=== PATIENT | male | born 1965 | race Caucasian/White ===

== ENCOUNTER 2024-01-07 17:56 | Inpatient (IN) | payer OTHER ==
[~2024-01-07] VITALS: Ht 182.9 cm; Wt 81.7 kg
[2024-01-07] MEDS ORDERED: Ondansetron HCl 2 MG / ML 2ML Vial IV ONE (18:25)
[2024-01-07] MEDS ORDERED: HYDROmorphone HCl/Pf 1MG SYR IV ONE ×2 (18:25→20:10)
[2024-01-07] MEDS ORDERED: NS 1,000 ML IV SCH (18:30)
[2024-01-07 18:35] LABS: BASOPHILS ABSOLUTE AUTO 0.08 K/mm3 (0.00-0.23); BASOPHILS PERCENT AUTO 1 % (0-2); EOSINOPHILS ABSOLUTE AUTO 0.01 K/mm3 (0.00-0.68); EOSINOPHILS PERCENT AUTO 0 % (0-6); Hematocrit 42.4 % (37.0-53.0); Hemoglobin 14.5 g/dL (13.5-17.5); IMMATURE GRAN ABSOLUTE AUTO 0.04 K/mm3 (0.00-0.10); IMMATURE GRAN PERCENT AUTO 0 % (0-1); LYMPHOCYTES ABSOLUTE AUTO 2.11 K/mm3 (0.84-5.20); LYMPHOCYTES PERCENT AUTO 17 % (21-46); MONOCYTES ABSOLUTE AUTO 0.56 K/mm3 (0.16-1.47); MONOCYTES PERCENT AUTO 4 % (4-13); Mean Corpuscular HGB 29.7 pg (26.0-34.0); Mean Corpuscular HGB Conc 34.2 g/dL (31.5-36.5); Mean Corpuscular Volume 87 fL (80-100); Mean Platelet Volume 9.5 fL (9.1-12.4); NEUTROPHILS ABSOLUTE AUTO 9.84 K/mm3 (1.96-9.15); NEUTROPHILS PERCENT AUTO 78 % (41-73); Platelet Count 342 K/mm3 (150-400); RDW Coefficient Variation 13.3 % (11.7-14.2); RDW Standard Deviation 42.1 fL (35.1-46.3); Red Blood Cell Count 4.88 M/mm3 (4.30-5.90); White Blood Cell Count 12.64 K/mm3 (4.00-11.30)
[2024-01-07 18:56] LABS: Albumin, Blood 4.1 g/dL (3.4-5.0); Albumin/Globulin Ratio 1.1 (0.8-1.8); Bilirubin, Total 0.4 mg/dL (0.1-1.0); Bun/Creatinine Ratio 14.4 (12.0-20.0); Calcium, Blood 9.3 mg/dL (8.5-10.1); Creatinine, Blood 0.84 mg/dL (0.60-1.20); Globulin, Blood 3.8 g/dL (2.2-4.0); Potassium, Blood 3.2 mmol/L (3.5-5.5); Total Protein, Blood 7.9 g/dL (6.4-8.2)
[2024-01-07 20:04] LABS: Source, Urine Clean Catch
[2024-01-07 20:07] LABS: Appearance, Urine Clear (Clear); Bilirubin, Urine Neg (Neg); Blood, Urine Neg (Neg); Glucose Qualitative, Urine Neg (Neg); Ketones, Urine 3+ (Neg); Leukocyte Esterase, Urine Neg (Neg); Nitrite, Urine Neg (Neg); Protein, Urine Neg (Neg); Urobilinogen, Urine NORM (Normal)
[2024-01-07] MEDS ORDERED: Prochlorperazine Edisylate 10 mg Vial IV ONE (20:10)
[2024-01-07 20:13] LABS: Color, Urine Pale Yellow (P-Yellow)
[2024-01-07] MEDS ORDERED: HYDROmorphone HCl/Pf 1MG SYR IV PRN ×2 (20:45→22:15)
[2024-01-07] MEDS ORDERED: Lactated Ringer's 1,000 ML IV SCH ×2 (20:45→22:15)
[2024-01-07] MEDS ORDERED: Piperacillin/Tazobactam Sod 3.375 GM in NS 100 ML IV ONE (20:45)
[2024-01-07] MEDS ORDERED: Ondansetron HCl 2 MG / ML 2ML Vial IV PRN ×2 (20:45→22:15)
[2024-01-07] MEDS ORDERED: FLU VACC TS2024-25(6MOS UP)/PF 45 MCG/0.5 ML SYRINGE IM ONE (22:15)
[2024-01-07] MEDS ORDERED: OxyCODONE 5 mg/Acetamin 325 mg TABLET PO PRN (22:20)
[2024-01-07] MEDS ORDERED: Ketorolac Tromethamine 15mg Vial IV PRN (22:45)
[2024-01-07 23:03] VITALS: BP 145/94
[2024-01-08] VITALS (11 sets, daily range): BP systolic 104–139; BP diastolic 69–90
[2024-01-08 05:19] LABS: BASOPHILS ABSOLUTE AUTO 0.07 K/mm3 (0.00-0.23); BASOPHILS PERCENT AUTO 1 % (0-2); EOSINOPHILS ABSOLUTE AUTO 0.08 K/mm3 (0.00-0.68); EOSINOPHILS PERCENT AUTO 1 % (0-6); Hematocrit 40.3 % (37.0-53.0); Hemoglobin 13.4 g/dL (13.5-17.5); IMMATURE GRAN ABSOLUTE AUTO 0.06 K/mm3 (0.00-0.10); IMMATURE GRAN PERCENT AUTO 0 % (0-1); LYMPHOCYTES ABSOLUTE AUTO 2.22 K/mm3 (0.84-5.20); LYMPHOCYTES PERCENT AUTO 16 % (21-46); MONOCYTES ABSOLUTE AUTO 1.26 K/mm3 (0.16-1.47); MONOCYTES PERCENT AUTO 9 % (4-13); Mean Corpuscular HGB 29.6 pg (26.0-34.0); Mean Corpuscular HGB Conc 33.3 g/dL (31.5-36.5); Mean Corpuscular Volume 89 fL (80-100); Mean Platelet Volume 9.2 fL (9.1-12.4); NEUTROPHILS ABSOLUTE AUTO 9.86 K/mm3 (1.96-9.15); NEUTROPHILS PERCENT AUTO 73 % (41-73); Platelet Count 295 K/mm3 (150-400); RDW Coefficient Variation 13.5 % (11.7-14.2); RDW Standard Deviation 44.2 fL (35.1-46.3); Red Blood Cell Count 4.52 M/mm3 (4.30-5.90); White Blood Cell Count 13.55 K/mm3 (4.00-11.30)
[2024-01-08 05:51] LABS: Albumin, Blood 3.3 g/dL (3.4-5.0); Bilirubin, Total 2.7 mg/dL (0.1-1.0); Bun/Creatinine Ratio 10.8 (12.0-20.0); Calcium, Blood 8.6 mg/dL (8.5-10.1); Creatinine, Blood 1.02 mg/dL (0.60-1.20); Globulin, Blood 3.2 g/dL (2.2-4.0); Potassium, Blood 4.3 mmol/L (3.5-5.5); Total Protein, Blood 6.5 g/dL (6.4-8.2)
--- NOTE | 2024-01-08 06:43 | NUR ---
SHIFT SUMMARY PT IS ALERT AND ORIENTED TIMES 3. PT IS DNR. FALL RISK. HX OF CLOSED HIP FRACTURE, DEMENTIA, GERD, AND DEPRESSION. NO IV ACCESS. 1 PERSON ASSIST TO BSC. POSSIBLE DISCHARGE TO [facility] TUESDAY OR TUESDAY. BED IN LOW POSITION, RAILS TIMES 2, CALL LIGHT WITHIN REACH.
[2024-01-08] MEDS ORDERED: Docusate Sodium 100 MG Cap PO SCH (09:00)
[2024-01-08] MEDS ORDERED: Indocyanine Green 25 MG Vial IV ONE (12:15)
[2024-01-08] MEDS ORDERED: Bupivacaine 0.5% HCl 5 MG/ML 30MLVIAL ONE (12:58)
--- NOTE | 2024-01-08 12:59 | NUR ---
DR STOCKTON IN ROOM, PROCEDURE EXPLAINED. PT TAKEN TO SURGERY. AT BEDSIDE.
[2024-01-08] MEDS ORDERED: HYDROmorphone HCl/Pf 1MG SYR IV PRN (13:10)
[2024-01-08] MEDS ORDERED: Albuterol 2.5 MG/3 ML VIAL INH PRN (13:10)
[2024-01-08] MEDS ORDERED: CeFAZolin Sodium 2,000 MG in NS 100 ML IV SCH (13:15)
[2024-01-08] MEDS ORDERED: Rocuronium Bromide 10 MG/ML 5ML Injection IV ONE ×2 (13:15→15:36)
[2024-01-08] MEDS ORDERED: FentaNYL Citrate 50 MCG/ML 2 ML Injection IV PRN (13:15)
[2024-01-08] MEDS ORDERED: Droperidol 5 mg/2 ml Vial IV PRN (13:15)
[2024-01-08] MEDS ORDERED: FentaNYL Citrate 50 MCG/ML 5 ML Injection ONE (13:15)
[2024-01-08] MEDS ORDERED: propofoL 20 ML IV ONE (13:15)
[2024-01-08] MEDS ORDERED: Ketorolac Tromethamine 30mg Vial ONE (13:22)
[2024-01-08] MEDS ORDERED: Ondansetron HCl 2 MG / ML 2ML Vial ONE (13:22)
[2024-01-08] MEDS ORDERED: Dexamethasone Sod Phos 10 MG/ML 1ML VIAL ONE (13:22)
--- NOTE | 2024-01-08 13:22 | NUR ---
1315-PT BROUGHT DOWN FROM MEDICAL FLOOR TO BE MADE READY FOR SURGERY. PT IDENTIFIED AND CONSENT VERIFIED. ALL BELONGINGS LEFT IN ROOM. NO METAL/PROSTHESIS. PT NPO. VSS ON RA. PT IN PAIN INTERMITTENTLY. IV FLUSHED WITH 10CC NACL. CONNECTED TO 1L LR TKO. ABX PULLED, 2.5MG OF INDOCYANINE GIVEN IN PRE-OP. PAS ON AND WARM BLANKLETS PROVIDED. REPORT GIVEN TO FRONT ATTENDANT. AND BOTH SURGEON AND ACP INTO SEE PT.
[2024-01-08] MEDS ORDERED: NS 500 ML IV SCH (14:10)
[2024-01-08] MEDS ORDERED: Glucagon 1 MG/KIT VIAL ONE (15:04)
[2024-01-08] MEDS ORDERED: Phenylephrine HCl 100 MCG/ML-NS 10MLSYR (1MG/10ML) ONE (15:55)
[2024-01-08] MEDS ORDERED: Sugammadex Sodium 200 MG/2ML SDV (100 MG/ML) ONE (16:01)
--- NOTE | 2024-01-08 17:03 | NUR ---
PT RETURNED FROM SURGERY. BEDSIDE REPORT RECIEVED BY NYLA TONY. VSS ON RA. AT BEDSIDE.
--- NOTE | 2024-01-08 18:01 | NUR ---
SHIFT SUMMARY PT A/OX4. LAPAROSCOPIC CHOLECYSTECTOMY PERFORMED THIS AFTERNOON. PT HAS 5 SMALL INCISIONS TO THE ABDOMEN. PT REMAINS ON RA, SATS MAINTAINING >95%. PT REPORTS MILD PAIN. PT TOLERATING REGULAR DIET. POSSIBLE DISCHARGE TOMORROW.
[2024-01-09 00:09] VITALS: BP 119/79
[2024-01-09] MEDS ORDERED: Aspir 8181 MG PO (00:31)
--- NOTE | 2024-01-09 03:50 | NUR ---
A&Ox4, vss, denied pain, encouraged patient to walk in candelaria-patient declined, lap sites GLORIA, no drainage, patient slept t/o the night and sleeping at this time w/call light in reach, will cont to monitor until report given to oncoming nurse.
[2024-01-09 04:07] VITALS: BP 125/87
[2024-01-09 05:30] LABS: Hematocrit 36.9 % (37.0-53.0); Hemoglobin 12.5 g/dL (13.5-17.5); Mean Corpuscular HGB 30.4 pg (26.0-34.0); Mean Corpuscular HGB Conc 33.9 g/dL (31.5-36.5); Mean Corpuscular Volume 90 fL (80-100); Mean Platelet Volume 9.5 fL (9.1-12.4); Platelet Count 277 K/mm3 (150-400); RDW Coefficient Variation 14.1 % (11.7-14.2); RDW Standard Deviation 46.2 fL (35.1-46.3); Red Blood Cell Count 4.11 M/mm3 (4.30-5.90); White Blood Cell Count 15.24 K/mm3 (4.00-11.30)
[2024-01-09 05:57] LABS: Albumin/Globulin Ratio 0.9 (0.8-1.8); Bilirubin, Total 0.9 mg/dL (0.1-1.0); Bun/Creatinine Ratio 12.5 (12.0-20.0); Calcium, Blood 8.7 mg/dL (8.5-10.1); Creatinine, Blood 1.04 mg/dL (0.60-1.20); Globulin, Blood 3.4 g/dL (2.2-4.0); Potassium, Blood 3.8 mmol/L (3.5-5.5); Total Protein, Blood 6.4 g/dL (6.4-8.2)
[2024-01-09 08:07] VITALS: BP 119/79
--- NOTE | 2024-01-09 09:34 | NUR ---
pt laying in bed watching tv, had a dose of dilaudid this am for pain, states it's down to a / now, a/ox4, pleasant and cooperative with care, follows commands well, hrr, no edma noted, piv to rac, site is clear and patent, btx4, abd round soft tender around surgical wounds, voids without diff, skin has surgical stab wounds, otherwise c/w/d, logan ace, call light in reach.
[2024-01-09] MEDS ORDERED: Percocet 5-3251 EACH PO (11:48)
--- NOTE | 2024-01-09 13:26 | NUR ---
Pt has been discharged to home, went over instructions with him, he verbalized understanding, iv removed intact, meds were called in from Dr. Clarke office, left via wheelchair with lien searcher in attendence with all his belongings.
== END 2024-01-09 13:21 | disposition home or self-care (01) | DRG 419 ==
LOC: ER 17:56 → MEDS 20:46 → SURS 20:46 → MEDS 21:57
PROVIDERS: Emergency Medicine; ADMIT Surgery
PROC: 0FT44ZZ Resection of Gallbladder, Percutaneous Endoscopic Approach (ICD-10-PCS; principal; 2024-01-08 08:00)
DX: K80.12 Calculus of gallbladder with acute and chronic cholecystitis without obstruction (principal); Z86.718 Personal history of other venous thrombosis and embolism; R74.01 Elevation of levels of liver transaminase levels; Z87.81 Personal history of (healed) traumatic fracture; Z98.890 Other specified postprocedural states; Z79.82 Long term (current) use of aspirin
CPT/HCPCS: 36415; 71045; 74177; 74300; 76705; 80053; 81003; 83690; 83735; 84484; 85025; 85027; 88304; 93005; 93010; 96361; 96374-59; 96375; 96376; 99285-25; A9270; C1894; G0378; J0690; J0780; J1100; J1171; J1610; J1885; J2371; J2405; J2543; J2704; J3010; J7030; J7120; Q9967